=== PATIENT | female | born 1975 ===

== ENCOUNTER 2019-06-14 13:47 | Outpatient (CLI) | payer OTHER ==
[2019-06-14] MEDS ORDERED: AMLODIPINE-OLM1 EAC2 PO (14:35)
[2019-06-14] MEDS ORDERED: MICROZIDE12.5 MG PO (14:36)
[2019-06-14] MEDS ORDERED: TOPROL XL25 M1 PO (14:36)
[2019-06-14] MEDS ORDERED: AVAPRO75 MG PO (14:36)
[2019-06-14] MEDS ORDERED: ACID REDUCER20 M1 PO (14:36)
[2019-06-14] MEDS ORDERED: NORVASC10 MG PO (15:54)
== END 2019-06-14 13:48 | disposition home or self-care (01) ==
LOC: LAB 13:47 → ADM 14:15 → EDSTATUS 06-18 14:15 → CIR.AMB 06-18 14:15
DX: R22.2 Localized swelling, mass and lump, trunk (principal); Z01.818 Encounter for other preprocedural examination